=== PATIENT | male | born 2005 | race African-American/Black ===

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

== ENCOUNTER 2025-05-17 15:57 | Emergency (ER) | payer MEDICAID, OTHER ==
[~2025-05-17] VITALS: Ht 180.3 cm; Wt 111.0 kg
[~2025-05-17 15:57] MED LIST changes: +IBUP-1455 MT
[2025-05-17 16:08] VITALS: O2SAT 98
[2025-05-17] MEDS: TETRACAINE 0.5% OPHTH DROPS 4ML BOTHEYE ONE (19:46)
[2025-05-17] MEDS: FLUORESCEIN SODIUM 1MG/STRIP RIGHTEYE ONE (19:47)
[2025-05-17] MEDS ORDERED: TRIMO EACHEYE (19:59)
[2025-05-17 20:20] VITALS: BP 158/97; PULSE 63; RESP 15; TEMP 36.5; O2SAT 100
== END 2025-05-17 20:20 | disposition home or self-care (01) ==
LOC: ER 16:04
DX: H10.89 Other conjunctivitis (principal); Z79.899 Other long term (current) drug therapy
CPT/HCPCS: 99283